=== PATIENT | male | born 1945 | race Caucasian/White ===

== ENCOUNTER 2019-08-22 14:25 | Emergency (ER) | payer MEDICARE ==
[~2019-08-22] VITALS: Ht 167.6 cm; Wt 86.2 kg
[~2019-08-22 14:25] MED LIST: ASA81BEC PO; LANTUS SUBQ; LEVAQUIN 500 M500 M3 PO; LIPITOR40 MG PO; LISINOPRIL2.5 MG PO; METFORMIN HCL500 M3 PO; PROTONIX40 M2 PO; TOPROL XL50 MG PO
[2019-08-22 16:00] VITALS: BP 146/68
== END 2019-08-22 16:02 | disposition home or self-care (01) ==
LOC: M.ERS 14:25
DX: S70.02XA Contusion of left hip, initial encounter (principal); K59.00 Constipation, unspecified; I10 Essential (primary) hypertension; E11.9 Type 2 diabetes mellitus without complications; Z96.651 Presence of right artificial knee joint; W01.0XXA Fall on same level from slipping, tripping and stumbling without subsequent striking against object, initial encounter; Y93.E1 Activity, personal bathing and showering; Y92.89 Other specified places as the place of occurrence of the external cause; Y99.8 Other external cause status

== ENCOUNTER 2019-09-26 18:25 | Emergency (ER) | payer MEDICARE ==
[~2019-09-26] VITALS: Ht 167.6 cm; Wt 83.9 kg
[2019-09-26] MEDS ORDERED: ZESTRIL20 MG PO (18:34)
[2019-09-26] MEDS ORDERED: NORCO 5-325 TA1 EAC1 PO (20:05)
[2019-09-26 21:17] VITALS: BP 163/83
--- NOTE | 2019-09-27 11:08 | EKG ---
[place] [address] ELECTROCARDIOGRAM REPORT Name: BERNICE MORRIS Room: [facility]#: [id number] Admission: 09/26/19 Attend Phys: Discharge: 09/26/19 Date of : 43 Date of Service: 09/26/191842 Report #: [id number] THIS REPORT FOR: //name// [facility] ED Test Date: 2019-09-26 Test Time: 18:43:44 Pat Name: BERNICE MORRIS Department: Room: Gender: Certified Addiction Counselor: PRIYANK : 1945 Requested By: Mica Terrell Order Number: [id number] MD: Bernice Mace Measurements Intervals [place] Rate: 68 P: 14 MS: 233 QRS: -64 QRSD: 135 T: 86 QT: 451 QTc: 480 Interpretive Statements Sinus rhythm Prolonged MS interval Right bundle branch block LVH with IVCD and secondary repol abnrm Borderline prolonged QT interval Baseline wander in lead(s) V6 Compared to ECG 07/06/2019 20:25:35 Intraventricular conduction delay now present Left ventricular hypertrophy now present Early repolarization now present Atrial premature complex(es) no longer present ST (T wave) deviation no longer present Electronically Signed On 09-27-2019 11:06:18 CDT by Bernice Mace [email or web address] <ELECTRONICALLY SIGNED> By: Bernice Mace MD, [facility] 09/27/19 1106 42 42 Bernice Mace MD, [facility] /EPI
== END 2019-09-26 21:22 | disposition home or self-care (01) ==
LOC: M.ERS 18:25
DX: S40.012A Contusion of left shoulder, initial encounter (principal); S20.212A Contusion of left front wall of thorax, initial encounter; I10 Essential (primary) hypertension; E11.9 Type 2 diabetes mellitus without complications; Z96.651 Presence of right artificial knee joint; Z89.512 Acquired absence of left leg below knee; W22.8XXA Striking against or struck by other objects, initial encounter; Y93.89 Activity, other specified; Y92.89 Other specified places as the place of occurrence of the external cause; Y99.8 Other external cause status

== ENCOUNTER 2019-11-07 17:12 | Observation (INO) | payer MEDICARE ==
[~2019-11-07] VITALS: Ht 170.2 cm; Wt 84.4 kg
[~2019-11-07 17:12] MED LIST changes: +NORCO 5-325 TA1 EAC1 PO; +ZESTRIL20 MG PO
[2019-11-07 17:21] VITALS: BP 149/83
[2019-11-07] MEDS ORDERED: KEFLEX500 M1 PO (17:35)
[2019-11-07 18:08] LABS: ABSOLUTE BASOPHILS 0.1 thou/uL (0.0-0.2); ABSOLUTE EOSINOPHILS 0.2 thou/uL (0.0-0.7); ABSOLUTE LYMPHOCYTES 1.6 thou/uL (0.8-5.3); ABSOLUTE MONOCYTES 0.8 thou/uL (0.0-1.2); ABSOLUTE NEUTROPHILS 6.2 thou/uL (1.6-8.1); BASOPHILS 0.7 %; EOSINOPHILS 2.2 %; HEMATOCRIT 31.9 % (42.0-52.0); HEMOGLOBIN 10.5 gm/dL (14.0-18.0); LYMPHOCYTES 17.7 %; MCH 24.6 pg (26.0-34.0); MCHC 32.9 g/dL (28.0-37.0); MONOCYTES 9.3 %; MPV 7.8 fl. (7.2-11.1); NUCLEATED RBCS 0 /100WBC; PLATELET COUNT* 438 thou/uL (150-400); POLYS 70.1 %; RBC 4.25 mil/uL (4.50-6.00); RDW-CV 17.1 % (10.5-14.5); WBC 8.8 thou/uL (4.0-11.0)
[2019-11-07 18:18] LABS: POTASSIUM 3.8 mmol/L (3.5-5.1)
[2019-11-07 18:23] LABS: ALBUMIN 2.6 g/dL (3.4-5.0); CALCIUM 8.9 mg/dL (8.5-10.1); TOTAL BILIRUBIN 0.9 mg/dL (<0.1-1.0); TOTAL PROTEIN 7.3 g/dL (6.4-8.2)
[2019-11-07 20:10] VITALS: BP 174/81
[2019-11-07 20:30] VITALS: BP 179/90
--- NOTE | 2019-11-08 05:54 | NUR ---
PT ARRIVED TO THE UNIT AT 2009. A&O X 3-4, FORGETFUL AT TIMES. MEDS GIVEN ORDERED. PT STATES THAT HE DOESNT HAVE TO STAY IN THE HOSPITAL AND HE WANTS TO GO HOME" HE REFUSED TO BE NPO HE SAID HE IS NOT GOING TO HAVE ANY SURGERY SO HE DOESNT HAVE TO BE NPO. EDUCATION GIVEN, BUT PT DIDNT SEEM TO UNDERSTAND. PT ALSO REFUSED LAB DRAW THIS MORNING. RT FOOT ELEVATED ON PILLOW, PHOTO TAKEN. PT DENIED PAIN. INCONTINENT OF BOWEL. USES URINAL TO VOID. CALL LIGHT WITHIN REACH. WILL CONTINUE TO MONITOR.
[2019-11-08] MEDS ORDERED: BACTRIM DS TAB1 EACH PO (08:18)
[2019-11-08 09:49] VITALS: BP 179/82
[2019-11-08 10:09] LABS: CALCIUM 8.7 mg/dL (8.5-10.1); MAGNESIUM 1.8 mg/dL (1.8-2.4); POTASSIUM 3.4 mmol/L (3.5-5.1)
[2019-11-08 10:30] VITALS: BP 179/82
[2019-11-08 10:47] VITALS: BP 179/82
[2019-11-08 13:24] VITALS: BP 179/82
--- NOTE | 2019-11-08 13:25 | NUR ---
Pt discharged AMA in stable condition, to [facility] fac[facility]. Pt escorted out via with van services. Discharge instructions given to patient with chart information available for facility. IV removed and belongings returned to patient. No questions or concerns voiced by patient.
== END 2019-11-08 13:31 | disposition left against medical advice (07) ==
LOC: M.ERS 17:12 → M.TBA-ER 18:35 → M.ORTHSURG 18:35
PROVIDERS: Physician Assistant; ADMIT Internal Medicine; ATTEND Internal Medicine
DX: M86.8X7 Other osteomyelitis, ankle and foot (principal); L97.509 Non-pressure chronic ulcer of other part of unspecified foot with unspecified severity; E11.40 Type 2 diabetes mellitus with diabetic neuropathy, unspecified; K21.9 Gastro-esophageal reflux disease without esophagitis; I10 Essential (primary) hypertension; M19.271 Secondary osteoarthritis, right ankle and foot; Z79.4 Long term (current) use of insulin; Z87.891 Personal history of nicotine dependence

== ENCOUNTER 2019-12-10 06:09 | Inpatient (IN) | payer MEDICARE ==
[~2019-12-10] VITALS: Ht 170.2 cm; Wt 82.1 kg
[~2019-12-10 06:09] MED LIST changes: +BACTRIM DS TAB1 EACH PO; +KEFLEX500 M1 PO
[2019-12-10 06:10] VITALS: BP 119/80
[2019-12-10 06:34] LABS: URINE BILIRUBIN NEGATIVE (Negative); URINE BLOOD 3+ (Negative); URINE CLARITY CLOUDY; URINE COLOR RED; URINE GLUCOSE-RANDOM NEGATIVE (Negative); URINE KETONES TRACE (Negative); URINE LEUKOCYTES-REFLEX 1+ (Negative); URINE PROTEIN 3+ (Negative)
[2019-12-10 06:35] LABS: URINE NITRITE-REFLEX POSITIVE (Negative)
[2019-12-10 06:41] LABS: SQUAMOUS 0-3 Few /LPF (0-3); URINE RBC >20 Many /HPF (0-2); URINE WBC-REFLEX 6-15 Few /HPF (0-5)
[2019-12-10 06:42] LABS: CASTS None Seen /LPF (None Seen); CRYSTALS None Seen /LPF (None Seen); MUCUS 0-3 Light strn/LPF (None Seen)
[2019-12-10 06:52] LABS: ABSOLUTE BASOPHILS 0.1 thou/uL (0.0-0.2); ABSOLUTE EOSINOPHILS 0.2 thou/uL (0.0-0.7); ABSOLUTE LYMPHOCYTES 1.3 thou/uL (0.8-5.3); ABSOLUTE MONOCYTES 1.4 thou/uL (0.0-1.2); ABSOLUTE NEUTROPHILS 16.1 thou/uL (1.6-8.1); BASOPHILS 0.6 %; EOSINOPHILS 0.8 %; HEMATOCRIT 37.5 % (42.0-52.0); LYMPHOCYTES 6.8 %; MCH 23.8 pg (26.0-34.0); MCHC 32.1 g/dL (28.0-37.0); MCV 74.1 fL (80.0-100.0); MONOCYTES 7.3 %; MPV 8.3 fl. (7.2-11.1); NUCLEATED RBCS 0 /100WBC; PLATELET COUNT* 370 thou/uL (150-400); POLYS 84.5 %; RBC 5.07 mil/uL (4.50-6.00)
[2019-12-10 06:56] LABS: CALCIUM 8.8 mg/dL (8.5-10.1); CREATININE 1.1 mg/dL (0.6-1.3); POTASSIUM 4.2 mmol/L (3.5-5.1)
[2019-12-10 07:11] LABS: TOTAL BILIRUBIN 1.1 mg/dL (<0.1-1.0); TOTAL PROTEIN 7.7 g/dL (6.4-8.2)
[2019-12-10 07:24] LABS: PROTIME 10.7 Seconds (9.20-11.50)
--- NOTE | 2019-12-10 10:05 | NUR ---
LACHO; USER INTERFACE ARTIST OF NURSING CENTER CALLED FOR UPDATE. INFORMED HER THAT PT WILL BE ADMITTED FOR TREATMENT.
[2019-12-10 12:45] VITALS: BP 104/67
[2019-12-10 16:52] VITALS: BP 158/92
--- NOTE | 2019-12-10 18:35 | NUR ---
PT AOX2, CONFUSED AT TIMES AND FORGETFUL. PT IS WC BOUND AT HOME, LBKA AND R TOE AMPUTEE. NO C/O PAIN, EXCEPT WHEN URINATING, HEMATURIA PRESENT. PT CAN BE INCONTINENT AT TIMES. HOURLY ROUNDING COMPLETE. TOLERATING CARB CONTROLLED DIET
[2019-12-10 20:00] VITALS: BP 181/79
--- NOTE | 2019-12-11 04:20 | NUR ---
He can be very short tempered at times. He refused his lab draw this am.
--- NOTE | 2019-12-11 06:43 | NUR ---
Alert and oriented x 4. 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 He has been noncompliant with his diabetes at home. He had pain med x 1. He has slept well this shift.
[2019-12-11 07:40] VITALS: BP 173/85
[2019-12-11 08:59] LABS: HEMATOCRIT 34.6 % (42.0-52.0); HEMOGLOBIN 11.1 gm/dL (14.0-18.0); MCH 24.1 pg (26.0-34.0); MCHC 32.2 g/dL (28.0-37.0); MCV 74.9 fL (80.0-100.0); MPV 8.1 fl. (7.2-11.1); RBC 4.62 mil/uL (4.50-6.00); RDW-CV 18.9 % (10.5-14.5); WBC 12.6 thou/uL (4.0-11.0)
[2019-12-11 09:07] LABS: CALCIUM 8.4 mg/dL (8.5-10.1); CREATININE 1.1 mg/dL (0.6-1.3); MAGNESIUM 1.8 mg/dL (1.8-2.4); POTASSIUM 4.1 mmol/L (3.5-5.1)
--- NOTE | 2019-12-11 16:59 | NUR ---
PATIENT TRANFERRED TO ROOM 312 AT THIS TIME FROM ROOM 112. ALERT AND ORIENTED THIS SHIFT. NO COMPLAINTS OF PAIN. PATIENT TURNING SELF IN BED. ATTEMPTED TO CONTACT WOUND CARE REGARDING RIGHT FOOT WOUND, MULTIPLE ATTEMPTS WITH NO ANSWER. THIS NURSE ATTEMPTED TO PLACE DRESSING TO RIGHT FOOT WOUND AND PATIENT REFUSED. VOIDING CLEAR YELLOW URINE PER URINAL. IV SL, SCHED ABX INFUSED THIS AM. METFORMIN GIVEN WITH MEALS ORDERED.
--- NOTE | 2019-12-11 17:03 | NUR ---
cm completed started initial assessment. pt was a bit irritable and stated "my brain is still waking up. pt told cm he still resides at [facility], but couldnt recall the name. per chart. pt resides at the [place]. cm will contact facility [place]. pt has w/c. pt brother provides support, "he takes me to all my appointments." cm to follow up with pt to cont assessment when pt is in a better mood.
[2019-12-11 20:05] VITALS: BP 166/85
--- NOTE | 2019-12-12 05:47 | NUR ---
PT SLEPT OFF AND ON OVERNIGHT, USING URINAL TO VOID INDEP IN BED-SPILLING OCC, LINENS CHANGED NEEDED, [facility] OFFERED BUT PT REFUSES. HS ACCUCHECK 153, INSULIN GIVEN WITH SNACK ORDERED. RFA SL IV. NO HEMATURIA NOTED THIS SHIFT. PO PAIN MED GIVEN X1 FOR CO MILD BLADDER PAIN WITH VOIDING. AM LABS ORDERED BUT PT REFUSED LAB BLOOD DRAW. PT STATES HE IS GOING HOME TODAY BECAUSE HE FEELS BETTER AND CAN TAKE ORAL MEDS-ENCOURAGED TO DISCUSS PLAN WITH ROUNDING TODAY. AOX4, FORGET OVERNIGHT AT TIMES. L BKA. R FOOT WITH TOE AMPUTATIONS, R OLGUIN SCABS AND BOTTOM OF RIGHT FOOT. MOVES ABOUT IN BED SIDE TO SIDE INDEPENDENTLY. ABLE TO USE CALL LITE AND MAKE NEEDS KNOWN.
--- NOTE | 2019-12-12 07:54 | NUR ---
PT REFUSED AM VS. EXPLAINATION TO PT FOR THE NEED FOR THEM. PT BECAME UPSET AND CONTINUED TO REFUSE.
[2019-12-12] MEDS ORDERED: ACIDOPHILUS1 EAC4 PO (08:20)
[2019-12-12] MEDS ORDERED: CEFUROXIME250 MG PO (08:20)
[2019-12-12 09:43] LABS: CALCIUM 8.7 mg/dL (8.5-10.1); MAGNESIUM 1.9 mg/dL (1.8-2.4)
[2019-12-12 11:33] VITALS: BP 166/85
--- NOTE | 2019-12-12 13:23 | NUR ---
REPORT CALLED TO CLAUDIA PEREIRA.
--- NOTE | 2019-12-12 13:40 | NUR ---
PT DISCHARGED TO [facility]. IV ACCESS REMOVED. COPY OF PAPERWORK GIVEN TO PT BROTHERNANCY FOR [facility]. PT AND NANCY BOT VERBALIZED UNDERSTANDING. NANCY HERE TO TRANSPORT PT HOME. PRESCRITIONS GIVEN TO PT.
== END 2019-12-12 13:55 | disposition home or self-care (01) | DRG 871 ==
LOC: M.ERS 06:09 → M.TBA-ER 08:14 → M.ORTHSURG 08:14 → M.TBA-ER 08:14 → M.ORTHSURG 12:54 → M.3W 12-11 17:01
PROVIDERS: Emergency Medicine; Internal Medicine; ADMIT Internal Medicine; ATTEND Internal Medicine
DX: A41.51 Sepsis due to Escherichia coli [E. coli] (principal); G92 Toxic encephalopathy; N30.01 Acute cystitis with hematuria; I10 Essential (primary) hypertension; Z96.651 Presence of right artificial knee joint; Z89.512 Acquired absence of left leg below knee; E11.65 Type 2 diabetes mellitus with hyperglycemia; E11.51 Type 2 diabetes mellitus with diabetic peripheral angiopathy without gangrene; F17.210 Nicotine dependence, cigarettes, uncomplicated; E11.40 Type 2 diabetes mellitus with diabetic neuropathy, unspecified; B96.20 Unspecified Escherichia coli [E. coli] as the cause of diseases classified elsewhere; Z89.431 Acquired absence of right foot; Z79.899 Other long term (current) drug therapy; Z79.82 Long term (current) use of aspirin; Z79.4 Long term (current) use of insulin; Z03.818 Encounter for observation for suspected exposure to other biological agents ruled out

== ENCOUNTER 2020-07-15 08:39 | Inpatient (IN) | payer OTHER ==
[~2020-07-15] VITALS: Ht 167.6 cm; Wt 91.7 kg
[~2020-07-15 08:39] MED LIST changes: +ACIDOPHILUS1 EAC4 PO; +CEFUROXIME250 MG PO
[2020-07-15 08:44] VITALS: BP 170/79
[2020-07-15 09:35] LABS: HEMATOCRIT 39.9 % (42.0-52.0); HEMOGLOBIN 13.1 gm/dL (14.0-18.0); MCH 27.2 pg (26.0-34.0); MCHC 32.9 g/dL (28.0-37.0); MCV 82.7 fL (80.0-100.0); MPV 8.4 fl. (7.2-11.1); NUCLEATED RBCS 0 /100WBC; PLATELET COUNT* 201 thou/uL (150-400); RBC 4.82 mil/uL (4.50-6.00); RDW-CV 14.9 % (10.5-14.5); WBC 12.5 thou/uL (4.0-11.0)
[2020-07-15 09:39] LABS: CALCIUM 8.6 mg/dL (8.5-10.1); CREATININE 1.3 mg/dL (0.6-1.3); POTASSIUM 4.3 mmol/L (3.5-5.1)
[2020-07-15 09:51] LABS: ALBUMIN 3.1 g/dL (3.4-5.0); TOTAL BILIRUBIN 1.3 mg/dL (<0.1-1.0); TOTAL PROTEIN 6.8 g/dL (6.4-8.2)
[2020-07-15] MEDS ORDERED: ZOFRAN ODT4 MG SUBLING (10:49)
[2020-07-15 10:58] LABS: ABSOLUTE EOSINOPHILS 0.1 thou/uL (0.0-0.7); ABSOLUTE LYMPHOCYTES 0.5 thou/uL (0.8-5.3); ABSOLUTE MONOCYTES 1.3 thou/uL (0.0-1.2); ABSOLUTE NEUTROPHILS 10.6 thou/uL (1.6-8.1); PLATELET ESTIMATE ADEQUATE
--- NOTE | 2020-07-15 15:11 | EKG ---
[place] [address] ELECTROCARDIOGRAM REPORT Name: ALEXANDRABERNICE REYNOSO Room: [place] [address] ADM IN [facility]#: [id number] Admission: 07/15/20 Attend Phys: Sabrina Barrera, Discharge: Date of : 43 Date of Service: 07/15/20 0856 Report #: [id number] THIS REPORT FOR: //name// [facility] ED Test Date: 2020-07-15 Test Time: 08:56:46 Pat Name: BERNICE MORRIS Department: Room: [place] [address] Gender: M Sales Department Supervisor: DHARMESH : 1945 Requested By: Natalio Mandujano Order Number: [id number] MD: Rodger Turner Measurements Intervals [place] Rate: 60 P: 36 GA: 233 QRS: -81 QRSD: 135 T: QT: 462 QTc: 462 Interpretive Statements Sinus rhythm Atrial premature complexes Prolonged GA interval RBBB and LAFB Nonspecific T abnormalities, lateral leads Compared to ECG 09/26/2019 18:43:44 Atrial premature complex(es) now present Left ventricular hypertrophy no longer present Early repolarization no longer present Electronically Signed On 07-15-2020 15:11:00 CDT by Rodger Turner [email or web address] <ELECTRONICALLY SIGNED> By: Rodger Turner MD, [facility] 07/15/20 1511 [id number] [id number] Rodger Turner MD, [facility] /EPI
--- NOTE | 2020-07-15 15:17 | 2DMMODE ---
[place] [address] 2 D/M-MODE ECHOCARDIOGRAM Name: BERNICE MORRIS [place] Room: 170- ADM IN .[facility].#: [id number] Admission: 07/15/20 Attend Phys: Sabrina Barrera, Discharge: Date of : 43 Date of Service: 07/15/20 1516 Report #: [id number] THIS REPORT FOR: cc: Daniel Salazar MD, Dean L. MD Blick, David R. MD [facility] ~ APPROVED REPORT Study performed: 07/15/2020 14:39:11 EXAM: Comprehensive 2D, Doppler, and color-flow Echocardiogram Patient Location: In-Patient Room #: ER Status: routine BSA: 1.91 HR: 77 bpm BP: 196/94 mmHg Rhythm: NSR Other Information Study Quality: Good Indications Elevated Troponin 2D Dimensions IVSd: 9.83 (7-11mm) LVOT Diam: 19.73 (18-24mm) LVDd: 52.76 mm PWd: 10.41 (7-11mm) Ascending Ao: 32.84 (22-36mm) LVDs: 30.83 (25-40mm) Aortic Root: 34.47 mm Volumes Left Atrial Volume (Systole) LA ESV Index: 45.50 mL/m2 Aortic Valve AoV Peak Migel.: 1.45 m/s AO Peak Gr.: 8.46 mmHg LVOT Max P.83 mmHg AO Mean Gr.: 5.17 mmHg LVOT Mean P.97 mmHg LVOT Max V: 1.21 m/s AO V2 VTI: 28.19 cm LVOT Mean V: 0.80 m/s BRAD (VTI): 2.51 cm2 LVOT V1 VTI: 23.12 [place] [address] 2 D/M-MODE ECHOCARDIOGRAM Name: BERNICE MORRIS Room: [address] IN [facility].#: [id number] Admission: 07/15/20 Attend Phys: Sabrina Barrera, Discharge: Date of : 43 Date of Service: 07/15/20 1516 Report #: [id number] Mitral Valve E/A Ratio: 1.47 MV Decel. Time: 225.84 ms MV E Max Migel.: 0.96 m/s MV PHT: 65.49 ms MVA (PHT): 3.36 cm2 TDI E/Medial E': 19.20 Medial E' Migel.: 0.05 m/s Pulmonary Valve PV Peak Migel.: 0.86 m/s PV Peak Gr.: 2.99 mmHg Left Ventricle The left ventricle is normal size. There is normal LV segmental wall motion. There is normal left ventricular wall thickness. Left ventricular systolic function is normal. The left ventricular ejection fraction is within the normal range. LVEF is 55-60%. Grade IV - fixed restrictive diastolic dysfunction. Right Ventricle The right ventricle is normal size. The right ventricular systolic function is normal. Atria Left atrium is moderately dilated. The right atrium size is normal. Aortic Valve Mild aortic valve sclerosis. Trace aortic regurgitation. There is no aortic valvular stenosis. Mitral Valve The mitral valve is normal in structure. Trace mitral regurgitation. No evidence of mitral valve stenosis. Tricuspid Valve The tricuspid valve is normal in structure. There is no tricuspid valve regurgitation noted. Pulmonic Valve Pulmonic valve is not well visualized. There is no pulmonic valvular regurgitation[place] [address] 2 D/M-MODE ECHOCARDIOGRAM Name: ALEXANDRABERNICE Room: [address] IN [facility]#: [id number] Admission: 07/15/20 Attend Phys: Sabrina Barrera, Discharge: Date of : 43 Date of Service: 07/15/20 1516 Report #: [id number] The aortic root is normal in size. IVC is normal in size and collapses >50% with inspiration. Pericardium There is no pericardial effusion. <Conclusion> LVEF is 55-60%. Left atrium is moderately dilated. Mild aortic valve sclerosis. <ELECTRONICALLY SIGNED> By: Rodger Turner MD, FAC 07/15/20 1516 [id number] Rodger Turner MD, FAC /INF
[2020-07-15 16:09] VITALS: BP 138/58
[2020-07-15 16:30] VITALS: BP 162/76
[2020-07-16 04:28] VITALS: BP 165/80
[2020-07-16 05:10] LABS: URINE BILIRUBIN NEGATIVE (Negative); URINE BLOOD 2+ (Negative); URINE CLARITY CLEAR; URINE COLOR YELLOW; URINE GLUCOSE-RANDOM NEGATIVE (Negative); URINE KETONES NEGATIVE (Negative); URINE LEUKOCYTES-REFLEX NEGATIVE (Negative); URINE NITRITE-REFLEX NEGATIVE (Negative); URINE PROTEIN 2+ (Negative); URINE SPECIFIC GRAVITY 1.025 (1.005-1.030); URINE UROBILINOGEN 0.2 E.U./dl (0.2-1.0)
[2020-07-16 05:40] LABS: BACTERIA-REFLEX 1-9 Few /HPF (None Seen); CRYSTALS None Seen /LPF (None Seen); HYALINE CASTS 0-3 Few /LPF (None Seen); MUCUS 0-3 Light strn/LPF (None Seen); SQUAMOUS 0-3 Few /LPF (0-3); URINE RBC 3-10 Few /HPF (0-2); URINE WBC-REFLEX 0-5 Rare /HPF (0-5)
[2020-07-16 08:00] VITALS: BP 155/65
[2020-07-16 08:35] LABS: HEMATOCRIT 36.8 % (42.0-52.0); HEMOGLOBIN 12.2 gm/dL (14.0-18.0); MCH 27.3 pg (26.0-34.0); MCHC 33.2 g/dL (28.0-37.0); MCV 82.2 fL (80.0-100.0); MPV 8.2 fl. (7.2-11.1); RBC 4.47 mil/uL (4.50-6.00); RDW-CV 14.7 % (10.5-14.5); WBC 5.8 thou/uL (4.0-11.0)
[2020-07-16 08:50] LABS: ALBUMIN 2.7 g/dL (3.4-5.0); CALCIUM 8.2 mg/dL (8.5-10.1); CREATININE 1.4 mg/dL (0.6-1.3); MAGNESIUM 1.9 mg/dL (1.8-2.4); TOTAL BILIRUBIN 1.3 mg/dL (<0.1-1.0); TOTAL PROTEIN 6.1 g/dL (6.4-8.2)
[2020-07-16 12:10] VITALS: BP 142/74
[2020-07-16 16:08] VITALS: BP 144/85
[2020-07-16 20:00] VITALS: BP 163/72
[2020-07-16 23:58] VITALS: BP 183/83
[2020-07-17 05:01] VITALS: BP 187/81
[2020-07-17 05:02] LABS: HEMATOCRIT 36.2 % (42.0-52.0); HEMOGLOBIN 12.1 gm/dL (14.0-18.0); MCH 27.7 pg (26.0-34.0); MCHC 33.4 g/dL (28.0-37.0); MCV 82.9 fL (80.0-100.0); MPV 8.3 fl. (7.2-11.1); RBC 4.37 mil/uL (4.50-6.00); RDW-CV 14.9 % (10.5-14.5); WBC 6.7 thou/uL (4.0-11.0)
[2020-07-17 05:30] LABS: ALBUMIN 2.9 g/dL (3.4-5.0); CALCIUM 8.3 mg/dL (8.5-10.1); CREATININE 1.1 mg/dL (0.6-1.3); MAGNESIUM 1.8 mg/dL (1.8-2.4); POTASSIUM 3.6 mmol/L (3.5-5.1); TOTAL BILIRUBIN 1.3 mg/dL (<0.1-1.0); TOTAL PROTEIN 6.4 g/dL (6.4-8.2)
[2020-07-17 08:00] VITALS: BP 187/88
--- NOTE | 2020-07-17 11:18 | CON ---
[address] [address] CONSULTATION Name: BERNICE MORRIS Room: [address] IN M.R.#: [id number] Admission: 07/15/20 Attend Phys: Sabrina Barrera MD Discharge: Date of : 43 Report #: [id number] THIS REPORT FOR: cc: Daniel Salazar MD, Dean L. MD ~ Rodger Turner MD [facility] DATE OF SERVICE: 07/15/2020 CARDIOLOGY CONSULTATION HISTORY OF PRESENT ILLNESS: The patient is a 75-year-old single white male who I was asked to see in the hospital today after he was noted to have an abnormal troponin. The history is obtained from the patient as well as some old records. The patient has been admitted several times here to [facility]. He was admitted here last summer with osteomyelitis. 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 He currently lives in a long-term care facility and uses a walker. He has a history of dementia. Recently, he has been having a lot of loose stools. He was finally brought to the Emergency Room earlier today because he complained of nausea and some vomiting. Denied any abdominal pain. There has been no blood in his vomit or diarrhea. He was brought to the hospital by ambulance and admitted for further evaluation and treatment. Denies any chest pain, shortness of breath, palpitations, syncope, fever or cough. PAST MEDICAL HISTORY: He has had a hernia repair. He has a history of hypertension, diabetes. MEDICATIONS: His medications in long-term care facility consist of Lipitor, Protonix, insulin, metoprolol, lisinopril, metformin. FAMILY HISTORY: Negative for heart disease. SOCIAL HISTORY: He has been several times, continues to smoke. No alcohol abuse. REVIEW OF SYSTEMS: He denies history of stroke, asthma, liver disease. He apparently has had a kidney stone in the past. No cancer. No psychiatric illness. PHYSICAL EXAMINATION: GENERAL: Revealed an elderly, frail-appearing male, lying in bed, appeared in no distress. VITAL SIGNS: Blood pressure 170/80, pulse 60. He is afebrile. HEENT: He was anicteric. Conjunctivae pink. [place] [address] CONSULTATION Name: ALEXANDRABERNICE Room: [address]#: [id number] Admission: 07/15/20 Attend Phys: Sabrina Barrera MD Discharge: Date of : 43 Report #: [id number] NECK: Veins do not appear distended. CHEST: Clear to auscultation. CARDIOVASCULAR: Regular rate and rhythm. ABDOMEN: Soft. EXTREMITIES: There is no edema noted of the right lower extremity. SKIN: Cool and dry. NEUROLOGIC: Nonfocal. RADIOLOGICAL DATA: His ECG on admission showed a sinus rhythm, left anterior fascicular block, right bundle branch block. The patient had an echocardiogram performed earlier today that showed ejection fraction 60%, aortic sclerosis, mild left atrial dilatation. He had a chest x-ray performed a year ago in 2019 that showed cardiomegaly, mild interstitial infiltrates. LABORATORY WORK: Sodium 140, BUN 23, creatinine 1.3. His troponin mildly elevated at 0.24. BNP 2410, TSH 2.4. White blood cell count 12.5, hemoglobin 13.1. IMPRESSION AND RECOMMENDATIONS: 1. Borderline troponin. Reason unclear. No evidence of acute myocardial infarction. Recommend no further cardiac evaluation. 2. Diarrhea. I would check for Clostridium difficile colitis. 3. Diabetes. The patient is on insulin. 4. Hypertension. The patient is on beta yokasta and QUIQUE inhibitor. 5. Hyperlipidemia. The patient is on cholesterol and statin drug. 6. 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 7. Tobacco abuse. <ELECTRONICALLY SIGNED> By: Rodger Turner MD, FACC 07/17/20 1118 1535 1918Daleatha Turner MD, FACC /nt
[2020-07-17 12:24] VITALS: BP 187/88
[2020-07-17 13:03] VITALS: BP 187/88
== END 2020-07-17 14:08 | DRG 391 ==
LOC: M.ERS 08:39 → M.2W 13:20 → M.TBA-ER 13:20 → M.2W 16:20
PROVIDERS: Family Medicine; ADMIT Internal Medicine; ATTEND Internal Medicine
DX: A08.4 Viral intestinal infection, unspecified (principal); N17.0 Acute kidney failure with tubular necrosis; I10 Essential (primary) hypertension; D18.09 Hemangioma of other sites; K82.8 Other specified diseases of gallbladder; R77.8 Other specified abnormalities of plasma proteins; E78.5 Hyperlipidemia, unspecified; E11.40 Type 2 diabetes mellitus with diabetic neuropathy, unspecified; D35.02 Benign neoplasm of left adrenal gland; F17.200 Nicotine dependence, unspecified, uncomplicated; Z96.651 Presence of right artificial knee joint; Z20.822 Contact with and (suspected) exposure to COVID-19; Z89.512 Acquired absence of left leg below knee; Z79.82 Long term (current) use of aspirin; Z79.4 Long term (current) use of insulin; Z79.899 Other long term (current) drug therapy

== ENCOUNTER 2021-06-18 21:27 | Emergency (ER) | payer OTHER ==
[~2021-06-18] VITALS: Ht 172.7 cm; Wt 85.7 kg
[~2021-06-18 21:27] MED LIST changes: +ZOFRAN ODT4 MG SUBLING
[2021-06-18] MEDS ORDERED: FENTANYL1 EAC1 TRANSDERM (21:39)
[2021-06-18] MEDS ORDERED: NEURONTIN 300M300 M2 PO (21:39)
[2021-06-18] MEDS ORDERED: PROTONIX 20 MG20 MG PO (21:40)
[2021-06-18] MEDS ORDERED: REGULOID0.4 GM PO (21:41)
[2021-06-18] MEDS ORDERED: BACTRIM DS TAB1 EAC1 PO (21:44)
[2021-06-18] MEDS ORDERED: [UNRECOGNIZED DRUG - OTHER] PO (21:44)
[2021-06-18] MEDS ORDERED: VITAMIN D250 MC1 PO (21:45)
[2021-06-18] MEDS ORDERED: NOVOLOG100 UNIT/2 SUBQ (21:46)
[2021-06-18] MEDS ORDERED: OXYBUTYNIN 5 MG5 M2 PO (21:47)
[2021-06-18] MEDS ORDERED: NORCO7.5 PO (21:48)
[2021-06-18] MEDS ORDERED: PEPTO-BISMOL262 M1 PO (21:48)
[2021-06-18 21:49] LABS: ABSOLUTE EOSINOPHILS 0.3 thou/uL (0.0-0.7); ABSOLUTE LYMPHOCYTES 0.8 thou/uL (0.8-5.3); ABSOLUTE MONOCYTES 0.7 thou/uL (0.0-1.2); ABSOLUTE NEUTROPHILS 7.9 thou/uL (1.6-8.1); BASOPHILS 0.4 %; EOSINOPHILS 2.8 %; HEMATOCRIT 34.2 % (42.0-52.0); HEMOGLOBIN 11.2 gm/dL (14.0-18.0); LYMPHOCYTES 8.4 %; MCH 27.8 pg (26.0-34.0); MCHC 32.9 g/dL (28.0-37.0); MCV 84.4 fL (80.0-100.0); MONOCYTES 7.2 %; MPV 7.8 fl. (7.2-11.1); NUCLEATED RBCS 0 /100WBC; PLATELET COUNT* 314 thou/uL (150-400); POLYS 81.2 %; RBC 4.05 mil/uL (4.50-6.00); RDW-CV 15.2 % (10.5-14.5); WBC 9.7 thou/uL (4.0-11.0)
[2021-06-18] MEDS ORDERED: MILK OF MA400 MG/5 M PO (21:49)
[2021-06-18] MEDS ORDERED: NARCAN4 MG NARES (21:52)
[2021-06-18] MEDS ORDERED: MORPHINE SUBLING (21:52)
[2021-06-18] MEDS ORDERED: MIRALAX119 GM PO (21:53)
[2021-06-18] MEDS ORDERED: GAS RELIEF125 M1 PO (21:54)
[2021-06-18 21:59] LABS: CALCIUM 8.8 mg/dL (8.5-10.1); CREATININE 1.8 mg/dL (0.6-1.3)
[2021-06-18 22:03] LABS: ALBUMIN 3.2 g/dL (3.4-5.0); TOTAL BILIRUBIN 0.4 mg/dL (<0.1-1.0); TOTAL PROTEIN 6.8 g/dL (6.4-8.2)
[2021-06-18 22:08] LABS: POTASSIUM 6.2 mmol/L (3.5-5.1)
[2021-06-19 00:06] VITALS: BP 151/71
== END 2021-06-19 00:09 | disposition left against medical advice (07) ==
LOC: M.ERS 21:27
PROVIDERS: Emergency Medicine
DX: E87.5 Hyperkalemia (principal); N17.9 Acute kidney failure, unspecified; I10 Essential (primary) hypertension; E11.9 Type 2 diabetes mellitus without complications; Z79.899 Other long term (current) drug therapy